=== PATIENT | male | born 1955 | race Caucasian/White ===

== ENCOUNTER 2018-06-30 23:46 | Emergency (ER) | payer BC, OTHER ==
[~2018-06-30] VITALS: Ht 182.9 cm; Wt 126.7 kg
[2018-06-30 23:59] VITALS: Ht 182.9 cm; Wt 126.7 kg
--- NOTE | 2018-07-01 03:04 | ERD ---
ER Documentation Chief Complaint Chief Complaint SOB, upper back pain, having left leg pain HPI Is a very pleasant 63-year-old male comes in with complaints of lower extremity swelling after driving 13 hours with the past few days. He denies any pain but he says he feels a little bit of tightness. He denies any chest pain. He does complain of some upper back pain as well. Denies any fevers or chills. Denies any [place] shortness of breath but said he started feeling anxious and he started becoming short of breath. No history of hypercoagulable state. No history of DVT or PE. No other current complaints ROS All systems reviewed and are negative except as per history of present illness. PMhx/Soc History of Surgery: Yes (SPINAL METAL IMPLANT ) Hx Cardiac Disorders: Yes (HTN,HYPERLIPIDEMIA) Hx Miscellaneous Medical Probl: Yes (DM) Hx Alcohol Use: No Hx Substance Use: No Hx Tobacco Use: No Smoking Status: Never smoker Physical Exam Vitals Vital Signs Date Temp Pulse Resp B/P (MAP) Pulse Ox O2 O2 Flow FiO2 Time Delivery Rate 06/30/18 99.0 99 20 171/88 99 23:59 (115) Physical Exam Const: No acute distress Head: Atraumatic Eyes: Normal Conjunctiva ENT: Normal External Ears, Nose and Mouth. Neck: Full range of motion. No meningismus. Resp: Clear to auscultation bilaterally Cardio: Regular rate and rhythm, no murmurs Abd: Soft, non tender, non distended. Normal bowel sounds Skin: No petechiae or rashes Back: No midline or flank tenderness Ext: No cyanosis, or edema Neur: Awake and alert Psych: Normal Mood and Affect Result Diagram: 07/01/18 0057 07/01/1856 Results 24 hrs Laboratory Tests Test 07/01/18 00:57 White Blood Count 6.2 10^3/ul Red Blood Count 4.68 10^6/ul Hemoglobin 14.2 g/dl Hematocrit 40.7 % Mean Corpuscular Volume 87.0 fl Mean Corpuscular Hemoglobin 30.3 pg Mean Corpuscular Hemoglobin Concent 34.9 g/dl Red Cell Distribution Width 12.6 % Platelet Count 197 10^3/UL Mean Platelet Volume 10.4 fl Immature Granulocytes % 0.300 % Neutrophils % 40.9 % Lymphocytes % 44.5 % Monocytes % 8.3 % Eosinophils % 5.2 % Basophils % 0.8 % Nucleated Red Blood Cells % 0.0 /100WBC Immature Granulocytes # 0.020 10^3/ul Neutrophils # 2.5 10^3/ul Lymphocytes # 2.8 10^3/ul Monocytes # 0.5 10^3/ul Eosinophils # 0.3 10^3/ul Basophils # 0.1 10^3/ul Nucleated Red Blood Cells # 0.0 10^3/ul Sodium Level 143 mmol/L Potassium Level 4.1 mmol/L Chloride Level 105 mmol/L Carbon Dioxide Level 26 mmol/L Anion Gap 12 Blood Urea Nitrogen 20 mg/dl Creatinine 1.02 mg/dl Est Glomerular Filtrat Rate mL/min > 60 mL/min Glucose Level 143 mg/dl Calcium Level 10.0 mg/dl Total Bilirubin 0.7 mg/dl Direct Bilirubin 0.00 mg/dl Indirect Bilirubin 0.7 mg/dl Aspartate Amino Transf (AST/SGOT) 31 IU/L Alanine Aminotransferase (ALT/SGPT) 33 IU/L Alkaline Phosphatase 85 IU/L Troponin I < 0.012 ng/ml B-Type Natriuretic Peptide 15 PG/ML Total Protein 7.2 g/dl Albumin 4.4 g/dl Globulin 2.80 g/dl Albumin/Globulin Ratio 1.57 Procedures/MDM Emergency department course: Patient developed a change in specimen for evaluation pleasant continuous awake overnight monitor and continuous pulse oximetry. Had a stat cardiac workup. Had ultrasound of the bilateral lower extremities. Serial exams are stable here in emergency department. Diagnostic data: EKG: Rate/Rhythm: [Normal Sinus Rhythm] QRS, ST, T-waves: [No changes consistent w/ acute ischemia] Impression: [No evidence of ischemia or arrhythmia]. Chest X-ray 1V Interpreted by me: Soft Tissue: No acute abnormalities Bones: No acute abnormalities Mediastinum/Cardiac Silhouette/Lungs: [No acute abnormalities] DVT study was negative Medical decision makin-year-old male with non-dependent edema no evidence of DVT. At this point, he said for outpatient management. Patient is to follow-up with primary care physician. Return for worsening symptoms Departure Diagnosis: Primary Impression: Bilateral lower extremity edema Condition: Stable Patient Instructions: Peripheral Edema, Bilateral ABRAHAN MERRITT Jul 01, 2018 03:04
[2018-07-01 03:11] VITALS: BP 127/76; PULSE 77; RESP 16
== END 2018-07-01 03:13 | disposition home or self-care (01) ==
LOC: E/R 23:46
DX: R22.43 Localized swelling, mass and lump, lower limb, bilateral (principal); I10 Essential (primary) hypertension; E11.9 Type 2 diabetes mellitus without complications
CPT/HCPCS: 36415; 71045; 80053; 83880; 84484; 85025; 93005; 93970